=== PATIENT | male | born 1960 | race Hispanic/Latino ===

== ENCOUNTER → 2022-05-01 | Day surgery (SDC) | payer OTHER ==
[~2022-05-01] MED LIST: ABILIFY10 MG PO; ATORVASTATIN CA10 MG PO; BUSPIRONE HCL10 MG PO; HYOSCYAMINE SULFATE 0.5 MG/ML INJ IV ONE; LIDOCAINE HCL 2% LOCAL INJ 5 ML SDV VIAL INJ ONE; LOSARTAN POTAS100 MG PO; OMEGA 3 1,0001 EACH PO; PAROXETINE HCL40 MG PO; PROPOFOL IV EMULSION 10 MG/ML 20 ML VIAL IV ONE; PROPRANOLOL HCL10 MG PO; TRAZODONE HCL100 MG PO
[2022-05-01 14:55] VITALS: BP 119/82
== END | disposition home or self-care (01) ==
LOC: OR 10:59
PROVIDERS: ATTEND Internal Medicine Gastroenterology
DX: Z12.11 Encounter for screening for malignant neoplasm of colon (principal); D12.2 Benign neoplasm of ascending colon; K57.30 Diverticulosis of large intestine without perforation or abscess without bleeding; K64.8 Other hemorrhoids; Z71.3 Dietary counseling and surveillance; I10 Essential (primary) hypertension; E78.5 Hyperlipidemia, unspecified; F17.210 Nicotine dependence, cigarettes, uncomplicated; Z71.6 Tobacco abuse counseling; Z01.810 Encounter for preprocedural cardiovascular examination; Z79.899 Other long term (current) drug therapy
CPT/HCPCS: 45378; 45380; 93005; J1980; J2001